=== PATIENT | male | born 1975 | race Caucasian/White ===

== ENCOUNTER 2019-04-06 15:38 | Emergency (ER) | payer OTHER, MEDICAID, SELFPAY ==
[2019-04-06 15:46] VITALS: BP 135/84; PULSE 107; RESP 16; TEMP 36.6; O2SAT 100
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
--- NOTE | 2019-04-06 16:41 | PC.NURSE ---
jose hall rn.
== END 2019-04-06 16:41 | disposition home or self-care (01) ==
PROVIDERS: Emergency Provider Nurse Practitioner
DX: R07.81 Pleurodynia (principal); V43.52XA Car driver injured in collision with other type car in traffic accident, initial encounter
CPT/HCPCS: 71046; 71111; 99282; 99283